=== PATIENT | male | born 1955 | race Caucasian/White ===

== ENCOUNTER 2022-11-06 11:24 | Emergency (ER) | payer MEDICARE, OTHER, SELFPAY ==
[2022-11-06] VITALS (10 sets, daily range): BP systolic 102–124; BP diastolic 47–111; PULSE 73–90; RESP 16–17; TEMP 36.4–37.1; O2SAT 98–100; BMI 32.1
--- NOTE | 2022-11-06 11:42 | EDS_ITS ---
HPI History of Present Illness Chief Complaint: Abn Labs Detail of Chief Complaint: Symptomatic anemia Informant: patient, spouse/S.O. and PCP (Patient was sent from Dr. Pacheco's office because her hemoglobin was 6) Onset/Context/Timing Onset: - (Presumed days to weeks) Context: Gradual Onset Timing: Continuous Quality: Dyspnea with exertion and lightheadedness Location: Not applicable Current Severity: Gone Maximum Severity: Moderate Worsened by: With walking distance, going up steps or exertion Relieved by: Rest Associated Symptoms Associated Symptoms: Fatigue, orthostatic lightheadedness Narrative Narrative: Patient is a 67-year-old male who was recently diagnosed with COVID. He then was diagnosed with esophageal cancer. He is undergoing work-up to determine appropriate treatment. His oncologist is Dr. Gomez. He is scheduled for testing at [facility]. states she was instructed to call to make appointments. Patient denies night sweats. Patient endorses weight loss. He attributed to the fact that he had COVID and did not eat for 3 days and he is has difficulty swallowing. He denies hematemesis or coffee-ground emesis. He denies black or maroon-colored stool. He denies blood in his stool. He denies hematuria. He denies bruising easily. Patient denies chest tightness, pressure, heaviness or any type of discomfort with activity. Patient denies orthopnea or PND. Patient does have swelling of both lower extremities. Right is greater than left. This is chronic. He denies history of PE or DVT. Records were sent from Dr. Maury Gomez's office. These were reviewed. 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 GI is remarkable for increased constipation. He also increased heartburn. Blood work was obtained through the [facility] November 05. This included a CBC, comprehensive metabolic panel. He is scheduled for CT of the chest/abdomen. Hemoglobin is 6.6 with hematocrit of 23.2. MCV is 66 which would indicate microcytic anemia from chronic blood loss. Blood work is consistent with severe iron deficiency anemia. Presumption is this is due to GI blood loss. [facility] Medical History (Updated 11/06/22 @ 13:31 by Aubrie Pretty) Diabetes Hypertension Allergy/AdvReac Type Severity Reaction Status Date / Time No Known Allergies Allergy Verified 11/06/22 11:27 Social History (Updated 11/06/22 @ 11:[address] Tariq Fink MD) household members: spouse Smoking Status: Former smoker alcohol intake: current alcohol intake frequency: holidays/special occasions only substance use type: does not use ROS ROS ED Constitutional Constitutional ED: Reports weight loss; Denies chills, fever(s) or sweats Eyes Eyes: Denies blurry vision, change in vision or diplopia ENT ENT ED: Denies ear pain, rhinorrhea or sore throat Cardiovascular Cardiovascular: Reports other Details: Heartburn ; Denies chest pain, orthopnea, palpitations, paroxysmal nocturnal dyspnea or racing heartbeat Respiratory/Chest Respiratory/Chest: Reports dyspnea on exertion; Denies cough, dyspnea, orthopnea, paroxysmal nocturnal dyspnea or sputum Gastrointestinal Gastrointestinal: Reports constipation; Denies abdominal pain, melena, nausea or vomiting Genitourinary Genitourinary ED: Denies dysuria, hematuria or urinary frequency Musculoskeletal Musculoskeletal: Denies arthralgias, back pain, myalgias or neck pain Integumentary Denies rash Neurologic Neurologic: Reports weakness; Denies headache(s) or paresthesias Endocrine Endocrinology: Denies cold intolerance or heat intolerance Hematologic/Lymphatic Hematologic/Lymphatic: Reports anemia EXAM Physical Exam Const Vital Signs: 11/06/22 11:25 11/06/22 13:28 11/06/22 13:30 Temperature 97.5 F L 98.2 F Temperature Source Temporal Oral Pulse Rate 80 84 Respiratory Rate 16 16 Respiratory Effort Normal Non-Labored Respiratory Pattern Normal Blood Pressure 124/111 H 105/52 L Blood Pressure Mean 115 69 Blood Pressure Source Monitor Blood Pressure Position Semi-Fowlers Blood Pressure Location Left Arm Pulse Ox 98 100 Oxygen Delivery Method Room Air Room Air 11/06/22 13:43 Temperature 98.2 F Temperature Source Oral Pulse Rate 89 Respiratory Rate 16 Respiratory Effort Respiratory Pattern Blood Pressure 102/47 L Blood Pressure Mean 65 Blood Pressure Source Monitor Blood Pressure Position Semi-Fowlers Blood Pressure Location Left Arm Pulse Ox 100 Oxygen Delivery Method Room Air Positive well nourished, well developed and obese Constitutional Narrative: Patient appears pale. General Appearance ED: well developed, NAD and pallor Nutritional Appearance: obese HEENT Reports moist mucous membranes HEENT Narrative: Head is atraumatic normocephalic. Ears normal. Nares patent. Uvula midline. [place] mucosa appears pale. Eyes PERRL and EOMs intact bilaterally General Eye ED: Yes pale conjunctiva; Negative for scleral icterus Neck supple Chest Wall inspection of chest normal and palpation of chest normal Resp normal respiratory effort and clear to auscultation bilaterally Cardio regular rate, regular rhythm, S1 normal heart sound, S2 normal heart sound and no murmurs GI normal to inspection, nondistended, normoactive bowel sounds, non-tender, non-distended and no masses; Negative for hepatosplenomegaly Back/Spine no CVA tenderness Extremity normal to inspection Extremity Narrative: There is erythema in the creases of his palms. Neuro oriented x3, CN's II-XII intact bilaterally and no sensory deficits noted Sensorium / Orientation: alert Psych mental status grossly normal Skin no rashes or lesions noted, no wounds and No skin turgor normal General Skin Exam: pallor; Negative for jaundice MDM MDM MDM Narrative Medical decision making narrative: Patient presents with symptomatic anemia. Patient has severe iron deficiency anemia. Patient is scheduled for work-up for planning and treatment of his adenocarcinoma. Plan is to type and cross patient and administer blood. Dr. Maury Gomez's office notes were reviewed and laboratory studies that were performed yesterday were reviewed. These were not repeated. Since patient has severe microcytic anemia and is symptomatic he was transfused. The afternoon physician was made aware of patient. He was made aware in the event the patient has a reaction to the transfusion otherwise patient is to be discharged by nursing staff once blood has infused. Lab Data Attestation: I reviewed the patient's lab results. Labs: Laboratory Results - last 24 hr 11/06/22 11:54 Blood Type B NEGATIVE Antibody Screen NEGATIVE Crossmatch See Detail Discharge Plan Triage Chief Complaint: Abn Labs ED Provider: AleksTariq Dx/Rx/DC Orders Clinical Impression: Symptomatic anemia, Adenocarcinoma of esophagus, Barretts esophagus, Iron (Fe) deficiency anemia, Signs and symptoms of anemia, Unintentional weight loss of 5% body weight or less within 1 month Instructions: ED Anemia, Iron-Deficiency (Adult) Primary Care Provider: Chavez Sanderson NP Referrals: Maury Gomez DO [Med Staff - Active Staff] - Disposition Disposition: Home, Self Care
== END 2022-11-06 18:09 | disposition home or self-care (01) ==
LOC: ED 12:02
PROVIDERS: Emergency Provider Emergency Medicine; PCP Nurse Practitioner Primary Care; Visit Provider Emergency Medicine
DX: D50.9 Iron deficiency anemia, unspecified (principal); C15.9 Malignant neoplasm of esophagus, unspecified; E11.9 Type 2 diabetes mellitus without complications; I10 Essential (primary) hypertension; R12 Heartburn; Z87.891 Personal history of nicotine dependence; R63.4 Abnormal weight loss
CPT/HCPCS: 36430; 86850; 86900; 86901; 86920; 86922; 99283; J7040; P9016; A4216

== ENCOUNTER → 2022-11-17 | Outpatient (CLI) | payer MEDICARE, OTHER, SELFPAY ==
--- NOTE | 2022-11-17 11:00 | PET_ITS ---
EXAMINATION: FDG PET/CT ? INDICATIONS: 67-year-old male with a history of esophageal carcinoma, presenting for initial staging examination. ? COMPARISON EXAMINATION: None available ? INDEX LESION SIZE SUV INTERPRETATION Distal esophagus 31.7 mm 10.1 Fulfills quantitative criteria for viable neoplasm ? Proximal gastric body 72.3 mm 7.8 Fulfills quantitative criteria for viable neoplasm ? Multifocal mediastinal structures 27.5 mm largest 9.1 max Fulfills quantitative criteria for viable neoplasm ? Right upper lung, right upper lobe 6.2 mm 3.4 Fulfills quantitative criteria for viable neoplasm ? Perigastric lymph nodes 23.9 mm largest 7.1 max Fulfills quantitative criteria for viable neoplasm ? TECHNIQUE: Following the intravenous administration of 13.85 mCi of F-18 deoxyglucose via the left antecubital fossa, multiplanar image acquisitions of the neck, chest, abdomen and pelvis to the level of the midthigh, obtained at one-hour post radiopharmaceutical administration contemporaneously interpreted reveal: ? SERUM GLUCOSE LEVEL:? 127 mg/dL? HEIGHT:?? 78 inches WEIGHT:?? 240 pounds ? FINDINGS: ? HEAD/NECK:? There is no evidence of abnormal increased glucose metabolism in the pharyngeal mucosal space, parapharyngeal space, oropharynx, bilateral-lateral and anterior neck, hypopharynx and distribution of the larynx. ? The visualized portion of the cerebral cortical-subcortical structures demonstrate symmetric and preserved glucose metabolism. ? CHEST:? Facilitated radiopharmaceutical concentration is noted in the distal esophagus confluently continuing to the proximal gastric body with a calculated maximum standard uptake value of? 10.1. The maximal axial diameter of the distal esophageal hypermetabolic abnormality is 31.7 mm. Facilitated FDG uptake is noted in the superior mediastinum to the left of midline involving lymph node station 1, the lobar lymph node basin to the left of midline involving lymph node station 12L, the upper and lower paratracheal lymph nodes involving lymph node station 2 and 4R, and subcarinal lymph node station 7, as well as the right paraesophageal lymph nodes involving lymph node basin 8. The calculated maximum standard uptake value is 9.1. The largest metabolic abnormality is 27.5 mm. A parenchymal density defined in the right upper medial lung zone demonstrates a calculated standard uptake value of 3.4. The maximal axial diameter is approximately 6.2 mm. There is visualized radiopharmaceutical concentration noted in the left ventricular myocardium, consistent with the fed state.? ? CT of the chest demonstrates the following anatomic characteristics: The proximal esophagus demonstrates an air-fluid level and dilatation. Sclerotic calcification is noted in the thoracic aorta with a maximal axial diameter of 40.8 mm. There are no additional parenchymal densities-nodules defined in the right and left hemithorax with quantitatively significant increased radiopharmaceutical concentration. ? ABDOMEN/PELVIS:? Enhanced glucose concentration extends into the proximal gastric body lesser curvature with a calculated standard uptake value of 7.8. The maximal axial diameter is 72.3 mm. Several perigastric lymph nodes demonstrate increased FDG uptake with a calculated standard uptake value of 7.1 and a maximal axial diameter of 23.9 mm. Normal physiologic distribution of the radiopharmaceutical is identified in the hepatic (2.6) and splenic parenchyma, both renal units, urinary bladder, and remaining visualized intestinal tract. A bladder diverticulum is demonstrated in the right inguinal region. Uptake is noted in the abdominal aorta commensurate with activated leukocytes associated with atherosclerotic plaque formation. ? CT of the abdomen and pelvis is remarkable for the following: Calcification is noted within the prostate gland. A fat-containing left inguinal hernia is noted. Right and left inguinal soft tissue densities are nonglucose avid. Cyst formation is noted in the left kidney. Minimal calcification is noted in the abdominal aorta. ? SKELETAL:? There is no evidence of quantitatively significant enhanced glucose metabolism on meticulous inspection of the appendicular and axial skeletal structures. ? Degenerative changes defined in the thoracic and lumbar spine demonstrate no evidence of increased glucose metabolism. There are no sclerotic, mixed sclerotic-lytic, or primarily lytic changes defined in the axial skeletal structures with evidence of increased FDG uptake. ? PET/PET/CT Tumor Base -Thigh Init IMPRESSION: 1. ABNORMAL EXAMINATION INDICATIVE OF MALIGNANT-VIABLE NEOPLASM. 2. Increased radiopharmaceutical concentration manifest in the distal esophagus fulfills quantitative criteria for malignant transformation. 3. Enhanced tracer uptake noted in the proximal gastric body fulfills quantitative criteria for viable neoplastic infiltration. 4. Accentuated GLUCOSE metabolism identified in the mediastinal structures as well as right upper lung field, right upper lobe fulfill quantitative criteria for neoplastic infiltration (Gelacio et al, Journal of Clinical Oncology, 16:2142, 1998) (Burgos et al, Journal of Nuclear Medicine, 32:1, 1990). 5. The increased radiopharmaceutical concentration noted in the perigastric lymph nodes fulfills quantitative criteria for viable neoplasm. Electronic Signature Govind Bolanos D.O. Accurate Quantification of SUVs for this report are calculated using the exclusive [employer]. ([place].S. Patent No. [id number] 674, 983 B2 [phone] [place] patent [phone]). Standardization and correction of the FDG SUV metric via ACCUQUAN technology allow for vendor non-specific objective quantitative examination comparison and optimization of the sensitivity and specificity of the FDG PET-CT examination. Electronically Signed: Govind Bolanos, at 8:11 EST ,
== END | disposition home or self-care (01) ==
LOC: ONC 10:25
PROVIDERS: PCP Nurse Practitioner Primary Care; Referring Provider Radiology Radiation Oncology; Visit Provider Radiology Radiation Oncology
DX: C15.5 Malignant neoplasm of lower third of esophagus (principal)
CPT/HCPCS: 78815; A9552

== ENCOUNTER → 2023-01-11 | Outpatient (CLI) | payer MEDICARE, OTHER, SELFPAY ==
[2023-01-11 10:49] LABS: ALB/GLOB Ratio 1.1 RATIO (0.9-2.4); AST(SGOT) 18 U/L (15-37); Alanine Aminotransfer ALT/SGPT 23 U/L (16-61); Albumin, Serum 3.3 g/dL (3.2-5.0); Alkaline Phosphatase 46 U/L (45-117); Anion Gap 4 (5-15); BUN 16 mg/dL (7-18); BUN/Creat Ratio 19.7 RATIO (10-20); Calcium,Total 9.3 mg/dL (8.5-10.1); Chloride 106 mmol/L (98-107); Creatinine, Serum 0.81 mg/dL (0.70-1.30); EST Glomerular Filtration Rate 100 mL/min (>60); Est Glom Filt Rate - Afr Amer 121 mL/min (>60); Globulin 3.1 g/dL (2.2-4.2); Glucose 145 mg/dL (74-106); Magnesium 1.9 mg/dL (1.6-2.6); Potassium 4.4 mmol/L (3.5-5.1); Protein, Total 6.4 g/dL (6.4-8.2); Sodium Level 137 mmol/L (136-145)
== END | disposition home or self-care (01) ==
LOC: LABSPEC 10:09
PROVIDERS: PCP Nurse Practitioner Primary Care; Referring Provider Internal Medicine Hematology & Oncology; Visit Provider Internal Medicine Hematology & Oncology
DX: C15.5 Malignant neoplasm of lower third of esophagus (principal); D50.0 Iron deficiency anemia secondary to blood loss (chronic); K21.01 Gastro-esophageal reflux disease with esophagitis, with bleeding
CPT/HCPCS: 80053; 83735

== ENCOUNTER → 2023-02-09 | Outpatient (CLI) | payer MEDICARE, OTHER, SELFPAY ==
--- NOTE | 2023-02-09 08:30 | PET_ITS ---
EXAMINATION: FDG PET-CT INDICATIONS: A 67-year-old male with a history of primary esophageal carcinoma presenting for restaging examination. COMPARISON EXAMINATION: Prior FDG PET CT study dated 11/17/22. INDEX LESION SIZE SUV INTERPRETATION PERSISTENT: Distal esophagus 18.9 mm comp to 31.7 mm 5.5 comp to 10.1, 11/17/22 Fulfills quantitative criteria for viable neoplasm, interim metabolic improvement-quantitative partial metabolic response. PERSISTENT: Mediastinum and right thoracic perihilum 26.9 mm comp to 27.5 mm 4.1 comp to 9.1, 11/17/22 Fulfills quantitative criteria for viable neoplasm, interim metabolic improvement-quantitative partial metabolic response. NEW: Left lower lung field, left lower lobe 13.2 mm 3.4 May be secondary to pseudo progression if the patient is on immunotherapy. Repeat FDG PET imaging in 9-12 weeks is recommended to ensure stability, involution. PERSISTENT: Right upper lung field, right upper lobe 2.4 comp to 3.4, 11/17/22 Quantitative criteria for viable neoplasm are fulfilled, interim metabolic improvement-quantitative complete metabolic response. TECHNIQUE: Following the intravenous administration of mCi of F-18 deoxyglucose via the right antecubital fossa, multiplanar image acquisitions of the head, neck, chest, abdomen and pelvis to level of mid-thigh, lower extremities obtained at one hour post radiopharmaceutical administration contemporaneously interpreted with the current CT of the head, neck, chest, abdomen and pelvis to level of mid-thigh, lower extremities dated 02/09/23 via coregistration and prior FDG PET CT study dated 11/17/22 reveal: SERUM GLUCOSE LEVEL: mg/dl. HEIGHT: inches. WEIGHT: lbs. FINDINGS: Head/Neck: There is no evidence of abnormal increased glucose metabolism in the pharyngeal mucosal space, parapharyngeal space, bilateral-lateral and anterior neck, hypopharynx and distribution of the laryngeal structures. The visualized portion of the cerebral cortical-subcortical structures demonstrate symmetric and preserved glucose metabolism. CHEST: Persistent increased radiopharmaceutical concentration is noted in the distal esophagus generating a calculated maximum standard uptake value of 5.5 compared to 10.1 defined on the FDG PET CT study dated 11/17/22. The maximum axial diameter of the metabolic, morphologic abnormality currently is 18.9 mm compared to 31.7 mm. There is demonstrated increased radiopharmaceutical concentration noted in the right thoracic perihilum and mediastinal structures with a calculated maximum standard uptake value of 4.1 compared to 9.1 defined on the prior examination consistent with activated leukocytes associated with atherosclerotic plaque formation. The maximum axial diameter of the largest corresponding soft tissue density is 26.9 mm compared to 27.5 mm. Newly identified increased radiopharmaceutical concentration is manifest in the left lower lateral lung field, left lower lobe posterior to the fissure. The calculated maximum standard uptake value is 3.4. The maximum axial diameter is 13.2 mm. Persistent increased radiopharmaceutical concentration is defined in the right upper lung field, right upper lobe generating a current calculated maximum standard uptake value of 2.4 compared to 3.4 defined on the prior examination. Quantitative criteria for viable neoplasm are not fulfilled. Otherwise, the previously defined morphologic-anatomic changes described on the prior FDG PET-CT report dated 11/17/22, are essentially unchanged on the current examination. Abdomen/Pelvis: The prior defined perigastric increase in radiopharmaceutical concentration is not apparent on the current examination. Normal physiologic distribution of the radiopharmaceutical is apparent in the hepatic and splenic parenchyma, both renal units, bladder and visualized intestinal tract. Diffuse radiopharmaceutical concentration is noted in all four quadrants of the abdomen and pelvis. Otherwise, the previously defined morphologic-anatomic changes described on the prior FDG PET-CT report dated 11/17/22, are essentially unchanged on the current examination. Skeletal: Degenerative changes are noted in the cervical, thoracic and lumbar spine. There is no visualized sclerotic-lytic changes manifest on review of the appendicular-axial skeletal structures. PET/PET/CT Tumor Base -Thigh Subs IMPRESSION: 1. ABNORMAL EXAMINATION INDICATIVE OF MALIGNANT-VIABLE NEOPLASM. 2. Increased radiopharmaceutical concentration redefined in the distal esophagus fulfills quantitative criteria for viable neoplasm. 3. Enhanced tracer uptake redemonstrated in the mediastinal structures and right thoracic perihilum fulfills quantitative criteria for malignant transformation. 4. Newly identified increased glucose uptake noted in the left lower lateral lung zone, left lower lobe fulfills quantitative criteria for viable neoplasm with single point technique. 5. Redefined increased radiopharmaceutical concentration manifest in the right upper lung field, right upper lobe does not fulfill quantitative criteria for viable neoplasm. 6. Metabolic and/or anatomic stability may be ensured in the right hemithorax pulmonary parenchymal abnormality with repeat FDG PET study and/or CT of the thorax in 9-12 months. (Xiu, Journal of Nuclear Medicine 45:88, P2004 Suzanne, Seminars in Thoracic and Cardiovascular Surgery 14:292, 2002) 7. Overall, compared to the prior FDG PET CT study dated 11/17/22, there is continued demonstration of viable neoplasm within the distal esophagus, mediastinal structures, right thoracic perihilum demonstrating an interval partial metabolic response. Newly identified increased uptake noted in the left lower lung, left lower lobe may demonstrate pseudo compression of neoplasm if the patient is on immunotherapy. A quantitative complete metabolic response is demonstrated in the right upper lung field, right upper lobe as defined above. Electronic Signature Govind Bolanos D.O. Accurate Quantification of SUVs for this report are calculated using the exclusive [employer]. (U.S. Patent No. [id number] [id number] 983 B2 [phone] [place] patent [phone]). Standardization and correction of the FDG SUV metric via ACCUQUAN technology allow for vendor non-specific objective quantitative examination comparison and optimization of the sensitivity and specificity of the FDG PET-CT examination. Electronically Signed: Govind Bolanos, at 7:31 EDT ,
== END | disposition home or self-care (01) ==
LOC: ONC 08:13
PROVIDERS: PCP Nurse Practitioner Primary Care; Referring Provider Nurse Practitioner; Visit Provider Nurse Practitioner
DX: C15.5 Malignant neoplasm of lower third of esophagus (principal)
CPT/HCPCS: 78815; A9552

== ENCOUNTER 2024-01-04 16:18 | Emergency (ER) | payer MEDICARE, OTHER, SELFPAY ==
[2024-01-04] VITALS (20 sets, daily range): BP systolic 108–142; BP diastolic 61–86; PULSE 63–95; RESP 13–20; TEMP 35.9–37; O2SAT 94–97; BMI 29.3
[2024-01-04 18:00] LABS: International Normalized Ratio 1.1; Prothrombin Time (Protime)PT. 13.9 SECONDS (11.7-14.9)
[2024-01-04 18:08] LABS: ALB/GLOB Ratio 0.9 RATIO (0.9-2.4); AST(SGOT) 34 U/L (15-37); Alanine Aminotransfer ALT/SGPT 34 U/L (16-61); Albumin, Serum 3.7 g/dL (3.2-5.0); Alkaline Phosphatase 95 U/L (45-117); Anion Gap 5 (5-15); BUN 13 mg/dL (7-18); BUN/Creat Ratio 14.2 RATIO (10-20); Calcium,Total 9.2 mg/dL (8.5-10.1); Chloride 106 mmol/L (98-107); Creatinine, Serum 0.92 mg/dL (0.70-1.30); EST Glomerular Filtration Rate 87 mL/min (>60); Est Glom Filt Rate - Afr Amer 106 mL/min (>60); Glucose 206 mg/dL (74-106); Protein, Total 7.7 g/dL (6.4-8.2); Sodium Level 137 mmol/L (136-145)
--- NOTE | 2024-01-04 20:35 | EX.ED.DYSGE1 ---
HPI History of Present Illness Chief Complaint: Abn Labs Narrative Narrative: Patient presenting to the ER for evaluation. patient had a CT with IV contrast which was reported as an outpatient by Dr. Gomez for esophageal cancer and last chemotherapy was yesterday and he was put on a chemo pump. Patient states that a couple of days ago he noted that he had weakness in the right arm from the mid forearm down to the hand and it is weaker and extension of the forearm and wrist and he has slightly decreased sensation. Denies any trauma. No skin changes. States that his CT done yesterday showed metastatic cancer to the brain with hemorrhagic conversion he was sent to the ER. Patient is not on any blood thinners but states he started aspirin yesterday on his own. He is only taken 1 dose. Denies lightheadedness, dizziness, nausea, vomiting, visual complaints. No black or bloody stools. PFSH PFS Medical History Diabetes Hypertension Home Medications aspirin 81 mg tablet,delayed release (Adult Aspirin Regimen) 81 mg PO DAILY 01/04/24 [History Last Taken Unknown] atorvastatin 10 mg tablet 10 mg PO DAILY 01/04/24 [History Last Taken Unknown] ondansetron HCl 8 mg tablet 8 mg PO Q8H PRN PRN nausea/vomiting 01/04/24 [History Last Taken Unknown] pantoprazole 40 mg tablet,delayed release 40 mg PO DAILY 01/04/24 [History Last Taken 01/04/24] Allergy/AdvReac Type Severity Reaction Status Date / Time sulfamethoxazole Allergy Severe Swelling Verified 01/04/24 19:46 [From Bactrim] trimethoprim [From Bactrim] Allergy Severe Swelling Verified 01/04/24 19:46 Social History household members: spouse Smoking Status: Former smoker alcohol intake: current alcohol intake frequency: holidays/special occasions only substance use type: does not use ROS ROS ED Constitutional Constitutional ED: Denies chills, fever(s) or sweats Eyes Eyes: Denies blurry vision or change in vision ENT ENT ED: Denies ear pain or sore throat Cardiovascular Cardiovascular: Denies chest pain, palpitations or racing heartbeat Respiratory/Chest Respiratory/Chest: Denies cough, dyspnea or sputum Gastrointestinal Gastrointestinal: Denies abdominal pain, constipation, diarrhea, nausea or vomiting Genitourinary Genitourinary ED: Denies dysuria, hematuria or urinary frequency Musculoskeletal Musculoskeletal: Reports other Details: Right arm and hand weakness ; Denies arthralgias, myalgias or neck pain Integumentary Denies abscess, Abrasions or rash Neurologic Neurologic: Denies headache(s), paresthesias or weakness Psychiatric Psychiatric: Denies anxiety, depression, suicidal ideation or suicidal thoughts Endocrine Endocrinology: Denies polydipsia or polyuria EXAM Physical Exam Const Vital Signs: 01/04/24 16:19 01/04/24 17:40 01/04/24 18:00 Temperature 96.7 F L Temperature Source Temporal Pulse Rate 92 76 Respiratory Rate 16 18 Respiratory Pattern Normal Blood Pressure 137/85 H 142/86 H Blood Pressure Mean 102 101 Pulse Ox 96 95 Oxygen Delivery Method Room Air 01/04/24 19:00 01/04/24 19:01 01/04/24 19:15 Temperature Temperature Source Pulse Rate 95 Respiratory Rate 16 Respiratory Pattern Blood Pressure 136/77 H Blood Pressure Mean 94 Pulse Ox 97 94 94 Oxygen Delivery Method 01/04/24 19:30 01/04/24 19:30 01/04/24 19:45 Temperature Temperature Source Pulse Rate Respiratory Rate Respiratory Pattern Blood Pressure 126/71 H 126/71 H Blood Pressure Mean 87 87 Pulse Ox 94 Oxygen Delivery Method 01/04/24 19:58 01/04/24 20:00 Temperature Temperature Source Pulse Rate 85 Respiratory Rate 16 Respiratory Pattern Blood Pressure 134/82 H 137/82 H Blood Pressure Mean 97 98 Pulse Ox 96 95 Oxygen Delivery Method Positive well nourished General Appearance ED: NAD; Negative for pallor HEENT Reports moist mucous membranes Eyes PERRL and EOMs intact bilaterally Chest Wall inspection of chest normal Resp normal respiratory effort and clear to auscultation bilaterally Cardio regular rate and regular rhythm Extremity Extremity Narrative: Weakness in the right forearm and hand. Patient is able to raise his forearm and hand up off the bed and is able to extend his wrist as well as extend his elbow although it is weak. His handgrip is also weak. Throughout he has 4/5. Sensation is intact. Wrist cap refill to all 5 fingers. No skin changes or cellulitic changes. No bony tenderness. Neuro oriented x3 Psych mental status grossly normal Skin no rashes or lesions noted General Skin Exam: Negative for jaundice or pallor MDM MDM MDM Narrative Medical decision making narrative: Patient presenting with weakness in the right arm and on exam he has some weakness with extension and no skin changes he is already had a CT performed which shows a metastasis to the brain as well as possible hemorrhagic conversion. This is a 16 mm hemorrhagic/enhancing mass in the left middle frontal gyrus suspicious for Masonic disease called Socorro Nguyen on arrival and upload the CT and review to myself. Agree with interpretation. Case was discussed with the transfer line and I recommended consult with neurosurgery however the transfer line just gained acceptance to the hospital. I did not speak to a neurosurgeon I did not get the recommendations. Patient has been medically stable here. He is awaiting a bed assignment will be transferred when a bed is available. Impression: 1. Metastatic brain cancer 2. Hemorrhagic processes with vasogenic edema Lab Data Attestation: I reviewed the patient's lab results. Labs: Laboratory Results - last 24 hr 01/04/24 17:40 PT 13.9 INR 1.1 Sodium 137 Potassium 4.0 Chloride 106 Carbon Dioxide 26.0 Anion Gap 5 BUN 13 Creatinine 0.92 Est GFR (MDRD) Af Amer 106 Est GFR (MDRD) Non-Af 87 BUN/Creatinine Ratio 14.2 Glucose 206 H Calcium 9.2 Total Bilirubin 0.50 AST 34 ALT 34 Alkaline Phosphatase 95 Total Protein 7.7 Albumin 3.7 Globulin 4.0 Albumin/Globulin Ratio 0.9 Discharge Plan Triage Chief Complaint: Abn Labs ED Provider: Ernesto Mc Dx/Rx/DC Orders Prescriptions: No Action atorvastatin 10 mg tablet 10 mg PO DAILY aspirin [Adult Aspirin Regimen] 81 mg tablet,delayed release (DR/EC) 81 mg PO DAILY ondansetron HCl 8 mg tablet 8 mg PO Q8H PRN PRN (Reason: nausea/vomiting) pantoprazole 40 mg tablet,delayed release (DR/EC) 40 mg PO DAILY Primary Care Provider: Chavez Sanderson NP Referrals: Chavez Sanderson NP, [employer] [facility] [Primary Care Provider] -
--- NOTE | 2024-01-04 23:45 | ED.RN ---
received call from [facility] regarding status of patient. informed that transport would be arriving at [facility] at 0000. report given to RN at this time.
[2024-01-05] VITALS: BP 130/82; PULSE 85; RESP 14; O2SAT 98
== END 2024-01-05 00:04 | disposition short-term general hospital (02) ==
LOC: ED 17:52
PROVIDERS: Emergency Provider Student in an Organized Health Care Education/Training Program; PCP Nurse Practitioner Primary Care; Visit Provider Student in an Organized Health Care Education/Training Program
DX: G93.6 Cerebral edema (principal); C79.31 Secondary malignant neoplasm of brain; I62.9 Nontraumatic intracranial hemorrhage, unspecified; Z87.891 Personal history of nicotine dependence; Z85.01 Personal history of malignant neoplasm of esophagus; Z92.21 Personal history of antineoplastic chemotherapy
CPT/HCPCS: 80048; 80053; 85610; 99283; A4216

== ENCOUNTER 2025-03-27 12:22 | Outpatient (RCR) | payer MEDICARE, OTHER, SELFPAY ==
--- NOTE | 2025-03-28 07:37 | HP.OTEVAL_ITS ---
Patient's Visit Information Visit Information Visit Information: MAX OWEN Sr. is a 69 year old M, referred to Occupational Therapy by Whitney Gama MD, with a diagnosis of lymphedema LE bilateral. Date of Evaluation: 03/27/25 Occupational Therapist: Gianna Horner, ELENI/Carmen, CHT Subjective Subjective: This 69 year old male was seen for OT eval with dx of BLE venous peripheral insufficiency, secondary Lymphedema. pt states swelling started when he was 60 years old. pt states he was dx with DMII and then dx with cancer about 2.5 years ago. Pt states he lost a lot of weight and he is no longer diabetic. pt states he struggles with multiple brain lesions with radiation and esophageal cancer. pt states he has had issues with his legs seeping- he is currently using tubigrip to support circulation. pt would like to know what he can do to mtg. his swelling. Lymphedema (Circumferential Measure) Mid-foot: right 29cm left 26cm Ankle: right 36cm left 31cm Lower calf: right 42cm left 29cm Largest calf: right 48cm left 44cm Below knee: right 43cm left 38cm Lower Limb Functional Index Lower Extremity Functional Score: 33 Goals Goal: Patient will demonstrate a 20% reduction in edema by discharge: Yes Goal: Patient will demonstrate adequate knowledge of self-bandaging by the end of the first week.: Yes Goal: Patient will demonstrate adequate knowledge of self-massage by the end of the second week.: Yes Goal: Patient will demonstrate adequate knowledge of skin care and precautions by the end of the first week.: Yes Goal: Patient will demonstrate adequate knowledge of therapeutic exercises by discharge.: Yes Goal: Patient will select an appropriate compression garment and demonstrate adequate knowledge of correct donning technique, care and wearing schedule by discharge.: Yes Goal: Patient will voice understanding of need to replace compression garment every four to six months by discharge.: Yes Rehabilitation General Assessment: pt demo with bilateral LE edema stage II lymphedema with fibrotic and hyperpigmentation of bilateral LE. Pt demo need for skilled OT services 1x week for 4-6 weeks to ed. pt on lymphedema mtg. exercises that promote circulation, ed.. on self manual lymphatic massage, short stretch wrap, skin care and use of compression socks 20-30 mmHg. pt demo understanding and agrees to POC. pt currently undergoing chemo tx every other week so he will schedule around this. Rehabilitation Potential: Questionable Anticipated Interventions Anticipated Interventions: Education re assistive Equipment, Education re Diagnosis, Education re Life-long lymphedema Management, Education re Self- Bandaging Techniques, Education re Skin Care and Precautions, Education re Self Massage Techniques, Education re Correct Donning Tech,Care&Wearing Sched Comp Garments, Caregiver Training and Home Program Visit Plan Frequency: 1x/Week Duration: 4 Weeks TEXT: Thank you for the opportunity to evaluate your patient. For Medicare and Medicare HMO plans, please review the plan of care and approve it. It will need to be FAXED BACK to us at [phone] for Medicare purposes. Please let me know if there are questions or concerns regarding this plan of care. Physician Signature: Date:
--- NOTE | 2025-06-19 11:44 | HP.OTDCNRP_ITS ---
Patient Information Patient Information: MAX OWEN was seen in my office for initial evaluation on 03/27/25. The following Plan of Care was established for this patient: POC Established Initial Frequency: 1x/Week Initial Duration: 4 Weeks Anticipated Interventions Anticipated Interventions: Education re assistive Equipment, Education re Diagnosis, Education re Life-long lymphedema Management, Education re Self- Bandaging Techniques, Education re Skin Care and Precautions, Education re Self Massage Techniques, Education re Correct Donning Tech,Care&Wearing Sched Comp Garments, Caregiver Training and Home Program Last Seen Last Seen: This patient was last seen in our office 03/27/25. Pertinent comments regarding their Occupational therapy will appear below: pt was seen for eval only. no further apts have been scheduled and due to time lapse in services pt is d/c at this time. At this point I will be discontinuing this patient from occupational therapy. I would be happy to see this patient again in the future if found appropriate by the physician. Thank you! Gianna Horner, OTR/L, CHT
== END 2025-03-27 19:00 | disposition home or self-care (01) ==
LOC: OT 12:22
PROVIDERS: PCP Nurse Practitioner Primary Care; Referring Provider Surgery Vascular Surgery; Visit Provider Surgery Vascular Surgery
DX: I87.2 Venous insufficiency (chronic) (peripheral) (principal); I89.0 Lymphedema, not elsewhere classified
CPT/HCPCS: 97166; 97530